=== PATIENT | male | born 1945 | race Caucasian/White ===

== ENCOUNTER → 2023-01-10 | Day surgery (SDC) | payer BC, MEDICARE, OTHER ==
[2023-01-08 10:27] LABS: BASOPHILS # (AUTO) 0.1 (0.0-0.1); BASOPHILS % 0.9 % (0.0-1.0); EOSINOPHILS # (AUTO) 0.3 (0.0-0.4); HEMATOCRIT 46.2 % (38.2-49.6); HEMOGLOBIN 14.2 g/dL (14.0-18.0); LYMPHOCYTES # (AUTO) 2.4 (1.0-3.2); MEAN CORPUSCULAR HEMOGLOBIN 25.2 pg (28-32); MEAN CORPUSCULAR HGB CONC 30.7 g/dL (31-35); MEAN CORPUSCULAR VOLUME 82.1 fL (81-99); MONOCYTES # (AUTO) 0.9 (0.2-0.8); MONOCYTES % 8.7 % (4.4-11.3); NEUTROPHILS # (AUTO) 6.3 (2.1-6.9); NEUTROPHILS % 62.9 % (38.7-80.0); PLATELET COUNT 245 x10e3/uL (140-360); RED BLOOD COUNT 5.63 x10e6/uL (4.3-5.7); RED CELL DISTRIBUTION WIDTH 17.4 % (11.7-14.4)
[2023-01-08 10:44] LABS: ANION GAP 13.3 mmol/L (8-16); CALCIUM 8.9 mg/dL (8.4-10.2); CREATININE, SERUM 0.97 mg/dL (0.72-1.25); POTASSIUM 4.3 mmol/L (3.5-5.1)
[~2023-01-10] MED LIST: ASPIRIN81 MG PO; ATORVASTATIN CA20 MG PO; BALANCED SALT SOLN (OPTH) 15 ML BTL IO ONE; BUPIVACAINE HC 0.75% PF 10ML VIAL INJ ONE; CYCLOPENTOLATE HCL 2% OPTH SOLN 2 ML BTL OP ONE; EPINEPHRINE HCL 1:1000 1ML 1 MG/ML AMP ONE; GATIFLOXACIN(OPTH) 5 ML LIQD ONE; INVOKANA300 MG PO; LANTUS SC; LIDOCAINE HCL 2% LOCAL INJ 5 ML SDV VIAL INJ ONE; LIDOCAINE HCL-PF 4% 40 MG/1 ML 5ML AMP ONE; LOSARTAN PO; MANNITOL 20 % 500 ML BAG IV ONE; METFORMIN HCL500 MG PO; MIDAZOLAM HCL 2 MG/2 ML VIAL ONE; PHENYLEPHRINE HCL 2 ML DROPS ONE; PILOCARPINE HCL(OPTH) 15 ML LIQD ONE; POVIDONE IODINE 0.05% 0.05 % ML PO ONE; POVIDONE IODINE 5% (OPTH) 30 ML BTL ONE; PROPOFOL IV EMULSION 10 MG/ML 20 ML VIAL ONE; TOBRAMYCIN/DEXAMETHASONE(OPTH) 3.5 GM TUBE ONE; [UNRECOGNIZED DRUG - OTHER] PO
[2023-01-10 10:08] VITALS: BP 125/66
== END | disposition home or self-care (01) ==
LOC: OR 08:03
PROVIDERS: ATTEND Ophthalmology
DX: H25.12 Age-related nuclear cataract, left eye (principal); E11.9 Type 2 diabetes mellitus without complications; I10 Essential (primary) hypertension; Z01.810 Encounter for preprocedural cardiovascular examination; Z01.812 Encounter for preprocedural laboratory examination; Z79.4 Long term (current) use of insulin; Z79.84 Long term (current) use of oral hypoglycemic drugs; Z79.899 Other long term (current) drug therapy; Z79.02 Long term (current) use of antithrombotics/antiplatelets; Z79.82 Long term (current) use of aspirin
CPT/HCPCS: 36415 ×2; 66984; 80048; 82948; 85025; 93005; J0171; J2001; J2250; J2704; V2788

== ENCOUNTER 2024-07-06 13:01 | Inpatient (IN) | payer BC, MEDICARE, OTHER ==
[~2024-07-06] VITALS: Ht 188 cm; Wt 88.5 kg
[~2024-07-06 13:01] MED LIST changes: -BALANCED SALT SOLN (OPTH) 15 ML BTL IO ONE; -BUPIVACAINE HC 0.75% PF 10ML VIAL INJ ONE; -CYCLOPENTOLATE HCL 2% OPTH SOLN 2 ML BTL OP ONE; -EPINEPHRINE HCL 1:1000 1ML 1 MG/ML AMP ONE; -GATIFLOXACIN(OPTH) 5 ML LIQD ONE; -LIDOCAINE HCL 2% LOCAL INJ 5 ML SDV VIAL INJ ONE; -LIDOCAINE HCL-PF 4% 40 MG/1 ML 5ML AMP ONE; -MANNITOL 20 % 500 ML BAG IV ONE; -MIDAZOLAM HCL 2 MG/2 ML VIAL ONE; -PHENYLEPHRINE HCL 2 ML DROPS ONE; -PILOCARPINE HCL(OPTH) 15 ML LIQD ONE; -POVIDONE IODINE 0.05% 0.05 % ML PO ONE; -POVIDONE IODINE 5% (OPTH) 30 ML BTL ONE; -PROPOFOL IV EMULSION 10 MG/ML 20 ML VIAL ONE; -TOBRAMYCIN/DEXAMETHASONE(OPTH) 3.5 GM TUBE ONE
[2024-07-06 13:21] LABS: BASOPHILS # (AUTO) 0.1 (0.0-0.1); BASOPHILS % 0.6 % (0.0-1.0); EOSINOPHILS # (AUTO) 0.1 (0.0-0.4); EOSINOPHILS % 1.1 % (0.0-6.0); LYMPHOCYTES % 18.1 % (18.0-39.1); MEAN CORPUSCULAR HEMOGLOBIN 27.3 pg (28-32); MEAN CORPUSCULAR HGB CONC 31.9 g/dL (31-35); MEAN CORPUSCULAR VOLUME 85.6 fL (81-99); MONOCYTES # (AUTO) 0.8 (0.2-0.8); MONOCYTES % 7.3 % (4.4-11.3); NEUTROPHILS # (AUTO) 7.8 (2.1-6.9); NEUTROPHILS % 72.7 % (38.7-80.0); PLATELET COUNT 270 x10e3/uL (140-360); RED BLOOD COUNT 5.49 x10e6/uL (4.3-5.7); RED CELL DISTRIBUTION WIDTH 14.8 % (11.7-14.4); WHITE BLOOD COUNT 10.78 x10e3/uL (4.8-10.8)
[2024-07-06 13:51] LABS: ALBUMIN 3.8 g/dL (3.5-5.0); ALBUMIN/GLOBULIN RATIO 1.2 (0.8-2.0); ANION GAP 16.8 mmol/L (8-16); BILIRUBIN,TOTAL 0.8 mg/dL (0.2-1.2); CALCIUM 10.1 mg/dL (8.4-10.2); POTASSIUM 3.8 mmol/L (3.5-5.1); TOTAL PROTEIN 7.1 g/dL (6.5-8.1)
[2024-07-06 13:57] LABS: TROPONIN I 0.093 ng/mL (0-0.300)
[2024-07-06] MEDS: DONNATAL/LIDOCAINE/MAALOX 30 ML SUSP PO STA (14:00)
[2024-07-06] MEDS ORDERED: BELLADONNA ALK/PHENOBARBITAL 5 ML UDC ONE (14:18)
[2024-07-06] MEDS ORDERED: LIDOCAINE VISC 2% SOLN 15 ML UDC ONE (14:18)
[2024-07-06] MEDS ORDERED: MAGNESIUM/ALUMINUM/SIMETHICONE 30 ML UDC ONE (14:18)
[2024-07-06 15:54] LABS: TROPONIN I 0.144 ng/mL (0-0.300)
[2024-07-06] MEDS ORDERED: ONDANSETRON HCL INJ 2MG/ML 2ML 2 MG/ML VIAL IV PRN (16:15)
[2024-07-06] MEDS ORDERED: Morphine 4mg INJECTION 4 MG/ML INJ IV PRN (16:15)
[2024-07-06] MEDS ORDERED: HYDRALAZINE HCL 20 MG/ML VIAL IV PRN (16:45)
[2024-07-06] MEDS ORDERED: ACETAMINOPHEN 325 MG TAB PO PRN (16:45)
[2024-07-06] MEDS ORDERED: POLYETHYLENE GLYCOL 3350 17 GM PACK PO PRN (16:45)
[2024-07-06 18:47] VITALS: PULSE 63; RESP 20; TEMP 97.8
[2024-07-06 18:49] VITALS: PULSE 65; RESP 18; O2SAT 99
[2024-07-06] MEDS: DOCUSATE SODIUM 100 MG CAP PO SCH (18:54)
[2024-07-06] MEDS: SODIUM CHLORIDE 0.9% 1000ML 1,000 ML IV SCH (18:54)
[2024-07-06 20:00] VITALS: BP 152/79; PULSE 65; RESP 18; O2SAT 99
[2024-07-06 20:45] VITALS: BP 136/90; PULSE 51; RESP 18; TEMP 97.5; O2SAT 100
[2024-07-06 22:44] VITALS: BP 136/90; PULSE 51; RESP 18; TEMP 97.5; O2SAT 100
[2024-07-06 23:36] VITALS: BP 105/62; PULSE 69; RESP 18; TEMP 97.8; O2SAT 100
[2024-07-07] VITALS (25 sets, daily range): BP systolic 98–136; BP diastolic 50–71; PULSE 42–69; RESP 10–20; TEMP 97.7–98.2; O2SAT 94–100
[2024-07-07 00:27] LABS: TROPONIN I 6.446 ng/mL (0-0.300)
[2024-07-07] MEDS: ENOXAPARIN INJ 80 MG/0.8 ML SYR SC STA (01:00)
[2024-07-07 07:12] LABS: BASOPHILS # (AUTO) 0.1 (0.0-0.1); BASOPHILS % 0.8 % (0.0-1.0); EOSINOPHILS # (AUTO) 0.3 (0.0-0.4); EOSINOPHILS % 2.7 % (0.0-6.0); HEMATOCRIT 41.7 % (38.2-49.6); HEMOGLOBIN 13.1 g/dL (14.0-18.0); LYMPHOCYTES # (AUTO) 2.6 (1.0-3.2); LYMPHOCYTES % 25.9 % (18.0-39.1); MEAN CORPUSCULAR HEMOGLOBIN 27.6 pg (28-32); MEAN CORPUSCULAR HGB CONC 31.4 g/dL (31-35); MONOCYTES % 10.5 % (4.4-11.3); NEUTROPHILS # (AUTO) 5.9 (2.1-6.9); NEUTROPHILS % 59.8 % (38.7-80.0); PLATELET COUNT 233 x10e3/uL (140-360); RED BLOOD COUNT 4.74 x10e6/uL (4.3-5.7); RED CELL DISTRIBUTION WIDTH 14.8 % (11.7-14.4); WHITE BLOOD COUNT 9.86 x10e3/uL (4.8-10.8)
[2024-07-07] MEDS: FAMOTIDINE 20 MG TAB PO SCH (07:30)
[2024-07-07 07:40] LABS: CHOL/HDL RATIO 2.7 (3.9-4.7); MAGNESIUM 1.6 MG/DL (1.3-2.1); PHOSPHORUS 3.5 MG/DL (2.3-4.7)
[2024-07-07 07:43] LABS: ALBUMIN 3.2 g/dL (3.5-5.0); ALBUMIN/GLOBULIN RATIO 1.2 (0.8-2.0); BILIRUBIN,TOTAL 0.7 mg/dL (0.2-1.2); CALCIUM 8.9 mg/dL (8.4-10.2); CREATININE, SERUM 0.84 mg/dL (0.72-1.25); TOTAL PROTEIN 5.9 g/dL (6.5-8.1)
[2024-07-07 07:55] LABS: TROPONIN I 17.765 ng/mL (0-0.300)
[2024-07-07] MEDS: METFORMIN HCL 500 MG TAB PO SCH (08:00)
[2024-07-07 08:03] LABS: FREE T4 (FREE THYROXINE) 1.05 ng/dL (0.8-1.8); THYROID STIMULATING HORMONE 0.421 uIU/mL (0.350-4.940)
[2024-07-07] MEDS: CANAGLIFLOZIN 100 MG TABLET PO SCH (09:00)
[2024-07-07] MEDS: ASPIRIN 81 MG CHEW TAB PO SCH (09:00)
[2024-07-07] MEDS: LOSARTAN POTASSIUM 25 MG TAB PO SCH (09:00)
[2024-07-07] MEDS: MAGNESIUM SULFATE 2GM/50ML 50 ML IV ONE (09:10)
[2024-07-07] MEDS: HEPARIN SOD/SOD CHLORIDE 2,000 ML ONE (13:24)
[2024-07-07] MEDS: HEPARIN SOD (PORCINE) 1000 UNIT/ML 30ML ONE (17:31)
[2024-07-07] MEDS: NITROGLYCERIN/D5W 200 MCG/ML 250 ML ONE (17:32)
[2024-07-07] MEDS: VERAPAMIL HCL 2.5 MG/ML 2 ML VIAL ONE (17:32)
[2024-07-07] MEDS: SODIUM CHLORIDE 0.9% 1000ML 1,000 ML ONE (17:32)
[2024-07-07] MEDS: LIDOCAINE HCL 2% LOCAL 20 ML VIAL ONE (17:32)
[2024-07-07] MEDS: IOPAMIDOL 370 MG/ML 100 ML INFUS..BTL INJ ONE (17:32)
[2024-07-07] MEDS: CLOPIDOGREL BISULFATE 75 MG TAB ONE (17:33)
[2024-07-07] MEDS: ASPIRIN 325 MG TAB ONE (17:33)
[2024-07-07] MEDS: MIDAZOLAM HCL 2 MG/2 ML VIAL ONE (17:33)
[2024-07-07] MEDS: FENTANYL CITRATE/PF 100MCG/2 ML INJ ONE (17:35)
[2024-07-07] MEDS: ATORVASTATIN 20 MG TAB PO SCH (20:39)
[2024-07-07] MEDS: INSULIN GLARGINE 100 UNITS/ML VIAL SQ SCH (20:45)
[2024-07-08] VITALS: BP 125/62; PULSE 59; RESP 17; TEMP 98.4; O2SAT 96
[2024-07-08 04:00] VITALS: BP 129/61; PULSE 56; RESP 19; TEMP 98.2; O2SAT 98
[2024-07-08 08:14] LABS: BASOPHILS # (AUTO) 0.1 (0.0-0.1); BASOPHILS % 0.8 % (0.0-1.0); EOSINOPHILS # (AUTO) 0.3 (0.0-0.4); EOSINOPHILS % 3.9 % (0.0-6.0); HEMATOCRIT 42.6 % (38.2-49.6); HEMOGLOBIN 13.3 g/dL (14.0-18.0); LYMPHOCYTES # (AUTO) 1.4 (1.0-3.2); LYMPHOCYTES % 19.1 % (18.0-39.1); MEAN CORPUSCULAR HEMOGLOBIN 27.2 pg (28-32); MEAN CORPUSCULAR HGB CONC 31.2 g/dL (31-35); MEAN CORPUSCULAR VOLUME 87.1 fL (81-99); MONOCYTES # (AUTO) 0.8 (0.2-0.8); MONOCYTES % 10.1 % (4.4-11.3); NEUTROPHILS # (AUTO) 4.9 (2.1-6.9); NEUTROPHILS % 65.7 % (38.7-80.0); PLATELET COUNT 228 x10e3/uL (140-360); RED BLOOD COUNT 4.89 x10e6/uL (4.3-5.7); RED CELL DISTRIBUTION WIDTH 14.7 % (11.7-14.4)
[2024-07-08 08:16] VITALS: BP 134/73; PULSE 54; RESP 17; TEMP 98; O2SAT 97
[2024-07-08 08:38] LABS: ALBUMIN 3.2 g/dL (3.5-5.0); ALBUMIN/GLOBULIN RATIO 1.1 (0.8-2.0); ANION GAP 12.7 mmol/L (8-16); BILIRUBIN,TOTAL 0.8 mg/dL (0.2-1.2); CALCIUM 8.3 mg/dL (8.4-10.2); CREATININE, SERUM 0.83 mg/dL (0.72-1.25); MAGNESIUM 1.7 MG/DL (1.3-2.1); POTASSIUM 3.7 mmol/L (3.5-5.1)
[2024-07-08 09:00] VITALS: BP 134/73; PULSE 67; RESP 19; TEMP 98; O2SAT 98
[2024-07-08] MEDS: MAGNESIUM SULF 1GRAM/DEXTROSE 100 ML IV ONE (09:47)
[2024-07-08 11:40] VITALS: BP 122/76; PULSE 52; RESP 18; TEMP 97.5; O2SAT 96
[2024-07-08] MEDS ORDERED: PLAVIX75 MG PO (11:40)
[2024-07-08] MEDS ORDERED: ACETAMINOPHEN325 M1 PO (11:40)
[2024-07-08] MEDS ORDERED: ONDANSETRON HCL 4 MG ORAL DISINTEGRATING TAB PO PRN (13:00)
== END 2024-07-08 13:22 | disposition home or self-care (01) | DRG 322 ==
LOC: ER 13:05 → ERHOLD 16:03 → MED/SURG3 20:42 → OBSVTOIN 07-07 09:31
PROVIDERS: ADMIT Internal Medicine; ATTEND Internal Medicine
PROC: 027034Z Dilation of Coronary Artery, One Artery with Drug-eluting Intraluminal Device, Percutaneous Approach (ICD-10-PCS; principal; 2024-07-07)
PROC: 4A023N7 Measurement of Cardiac Sampling and Pressure, Left Heart, Percutaneous Approach (ICD-10-PCS; 2024-07-07)
PROC: B2151ZZ Fluoroscopy of Left Heart using Low Osmolar Contrast (ICD-10-PCS; 2024-07-07)
PROC: B2111ZZ Fluoroscopy of Multiple Coronary Arteries using Low Osmolar Contrast (ICD-10-PCS; 2024-07-07)
DX: I21.4 Non-ST elevation (NSTEMI) myocardial infarction (principal); I25.10 Atherosclerotic heart disease of native coronary artery without angina pectoris; Z95.5 Presence of coronary angioplasty implant and graft; E11.65 Type 2 diabetes mellitus with hyperglycemia; Z79.84 Long term (current) use of oral hypoglycemic drugs; Z79.4 Long term (current) use of insulin; E83.42 Hypomagnesemia; I10 Essential (primary) hypertension; I44.7 Left bundle-branch block, unspecified; I44.0 Atrioventricular block, first degree; R00.1 Bradycardia, unspecified; E78.5 Hyperlipidemia, unspecified; F17.210 Nicotine dependence, cigarettes, uncomplicated; K21.9 Gastro-esophageal reflux disease without esophagitis; Z95.2 Presence of prosthetic heart valve; Z79.82 Long term (current) use of aspirin; Z79.899 Other long term (current) drug therapy
CPT/HCPCS: 36415; 71045; 80053; 80061; 82550; 82948; 83036; 83690; 83735; 83880; 84100; 84439; 84443; 84484; 85025; 93005; 93306; 93454; 94799; 99152; 99153; 99284; C1874; C1887; G0378; J1644; J1650; J2001; J2250; J3475; J7030; Q9967